=== PATIENT | male | born 1945 | race Caucasian/White ===

== ENCOUNTER 2018-02-20 20:22 | Emergency (ER) | payer OTHER, MEDICARE ==
[~2018-02-20] VITALS: Ht 172.7 cm; Wt 115.5 kg
[~2018-02-20 20:22] MED LIST: AVODART0.5 MG PO; Aldactone PO; Bactrim,Septra DS 80 PO; CENTRUM SILVER1 EAC3 PO; COREG6.25 M1 PO; ENABLEX7.5 MG PO; HYGROTON25 MG PO; LASIX40 MG PO; LOTENSIN20 MG PO; LOTREL 5/201 CAPSULE PO; Lotrel 5/10 PO; METFORMIN HCL500 MG PO; NORVASC5 MG PO; OMEGA 3-6-91200 MG PO; PreserVision Softgel PO; SIMVASTATIN10 M1 PO; THERAGRAN1 TABLET PO; TOVIAZ8 MG PO; TRIAMTERENE-HC1 EACH PO; TYLENOL WITH C1 EACH PO
[2018-02-20] MEDS ORDERED: MOTRIN800 MG PO (22:17)
[2018-02-20 22:30] VITALS: BP 149/82
== END 2018-02-20 22:31 | disposition home or self-care (01) ==
LOC: RME 20:22 → EME 20:22 → RME 22:31
DX: S86.912A Strain of unspecified muscle(s) and tendon(s) at lower leg level, left leg, initial encounter (principal); I11.0 Hypertensive heart disease with heart failure; I50.9 Heart failure, unspecified; E11.9 Type 2 diabetes mellitus without complications; E78.5 Hyperlipidemia, unspecified; Z79.84 Long term (current) use of oral hypoglycemic drugs
CPT/HCPCS: 93971; 99281; 99284